=== PATIENT | male | born 1950 | race Caucasian/White ===

== ENCOUNTER 2018-04-04 20:36 | Outpatient (CLI) | payer SELFPAY | END 2018-04-04 20:37 | disposition EMS.NT | LOC: EMS 20:36 | PROVIDERS: ATTEND Surgery | DX: S61.051A Open bite of right thumb without damage to nail, initial encounter (principal); Y04.1XXA Assault by human bite, initial encounter ==

== ENCOUNTER 2022-07-18 13:49 | Emergency (ER) | payer MEDICARE ==
[2022-07-18 14:01] VITALS: BP 98/63
--- NOTE | 2022-07-18 14:15 | ED Physician Documentation ---
PD HPI LOWER EXT INJURY - Stated complaint Stated Complaint: LFT LEG INJ - Chief complaint Chief Complaint: Ext Problem - History obtained from History obtained from: Patient - History of Present Illness PD HPI LOW EXT INJURY LOCATION: Left, Knee (anteriorly) Type of injury: Laceration (he states he was using a knife poking at object and missed with the knife going down to lacerate into anterior patellar area. pain with ROM. He went to neighbor, who is a PA, and had the wound cleansed and stapled closed. Patient here today as hurting more and some swelling in anterior knee.) Review of Systems Neurologic: denies: Focal weakness, Numbness PD PAST MEDICAL HISTORY - Past Medical History Past Medical History: Yes Cardiovascular: Hypertension, High cholesterol Respiratory: None Neuro: None Endocrine/Autoimmune: None GI: None : None HEENT: None Psych: None Musculoskeletal: Chronic back pain, Other Derm: None - Past Surgical History Past Surgical History: Yes General: Other Ortho: Other - Present Medications Home Medications: Ambulatory Orders Medication Instructions Recorded Confirmed Atenolol [Tenormin] 100 mg PO DAILY 07/18/22 07/18/22 Atorvastatin Calcium 40 mg PO DAILY 07/18/22 07/18/22 Sertraline HCl 150 mg PO DAILY 07/18/22 07/18/22 buPROPion HCL [Bupropion Xl] 150 mg PO DAILY 07/18/22 07/18/22 methocarbamoL [Robaxin] 500 mg PO Q6H PRN #30 tablet 07/18/22 - Allergies Allergies/Adverse Reactions: Allergies Allergy/AdvReac Type Severity Reaction Status Date / Time No Known Drug Allergies Allergy Verified 07/18/22 14:01 - Social History Does the pt smoke?: No Smoking Status: Never smoker Does the pt drink ETOH?: Yes Does the pt have substance abuse?: No - Immunizations Immunizations are current?: Yes - POLST Patient has POLST: No PD ED PE NORMAL - Vitals Vital signs reviewed: Yes - General General: Alert and oriented X 3, No acute distress, Well developed/nourished - Derm Derm: Normal color, Warm and dry - Extremities Extremities: Other (left anterior knee over the patella area with stapled wound closed well. there is not any redness nor discharge. There is some fluid swelling lower infrapatellar area. no effusion. extension good but hurts. ) - Neuro Neuro: No motor deficit, No sensory deficit Results - Vitals Vitals: Vital Signs - 24 hr 07/18/22 13:52 Temperature 36.7 C Heart Rate 62 Respiratory 18 Rate Blood Pressure 98/63 O2 Saturation 95 Oxygen O2 Source Room air PD Medical Decision Making - ED course Complexity details: considered differential (he has some local swelling, presume soem dependent blood under skin, to the infrapatellar area. Presume stabbed into quads tendon that envelopes the patella. He would not have been able to get into joint at the direction the knife puncture went straight onto anterior patella. ), d/w patient Departure - Departure Disposition: 01 Home, Self Care Clinical Impression: Laceration of knee Qualifiers: Encounter type: initial encounter Laterality: right Qualified Code(s): S81.011A - Laceration without foreign body, right knee, initial encounter Low back pain Qualifiers: Chronicity: acute Back pain laterality: right Sciatica presence: with sciatica Sciatica laterality: sciatica of right side Qualified Code(s): M54.41 - Lumbago with sciatica, right side Condition: Stable Record reviewed to determine appropriate education?: Yes Instructions: ED Sciatica Prescriptions: methocarbamoL [Robaxin] 500 mg PO Q6H PRN #30 tablet PRN Reason: Spasms Comments: The duane on the knee look quite good. Given the location of the injury, it is reasonable that you have some injury into the tendon around the knee. It would be unlikely to hit anything significantly bad on the fronts there is most of the artery and nerves in such run on the backside. We can treat your pain in the knee as well as the low back pain with a combination of some ibuprofen 600 mg 3 times daily with food. Add methocarbamol/Robaxin muscle relaxant as needed for spasms and stiffness. To that add Tylenol every 4-6 hours if needed for pain. Recheck if signs of infection. Recheck of your back is not improving well over the next several days to a week. I sent your prescription to [facility] in [place]. Discharge Date/Time: 07/18/22 14:48
[2022-07-18] MEDS: IBUPROFEN 600 MG TABLET PO STA (14:45)
[2022-07-18] MEDS: ACETAMINOPHEN 325 MG TABLET PO STA (14:45)
[2022-07-18] MEDS: methocarbamoL 500 MG TABLET PO STA (14:45)
== END 2022-07-18 14:48 | disposition home or self-care (01) ==
LOC: ED 13:49
DX: S81.012A Laceration without foreign body, left knee, initial encounter (principal); W26.0XXA Contact with knife, initial encounter; M54.41 Lumbago with sciatica, right side; I10 Essential (primary) hypertension; E78.00 Pure hypercholesterolemia, unspecified; Z79.899 Other long term (current) drug therapy
CPT/HCPCS: 99282; 99283

== ENCOUNTER 2023-10-27 16:33 | Emergency (ER) | payer MEDICARE ==
--- NOTE | 2023-10-27 16:52 | ED Physician Documentation ---
PD HPI LOWER EXT INJURY - Stated complaint Stated Complaint: R KNEE DISCHARGE - Chief complaint Chief Complaint: Ext Problem - History obtained from History obtained from: Patient - Additional information Additional information: He is a little over 3 weeks out from a right total knee replacement done by Dr. Trotter in [place]. Today he developed a pinpoint of drainage in the anterior incision and was advised to come here for further evaluation and treatment. He does not feel ill. No fevers. PD PAST MEDICAL HISTORY - Past Medical History Past Medical History: Yes Cardiovascular: Hypertension, High cholesterol Respiratory: None Neuro: None Endocrine/Autoimmune: None GI: None : None HEENT: None Psych: None Musculoskeletal: Chronic back pain, Other Derm: None - Past Surgical History Past Surgical History: Yes General: Other Ortho: Knee replacement, Spine surgery, Other - Present Medications Home Medications: Ambulatory Orders Medication Instructions Recorded Confirmed Atenolol [Tenormin] 100 mg PO DAILY 07/18/22 07/18/22 Atorvastatin Calcium 40 mg PO DAILY 07/18/22 07/18/22 Sertraline HCl 150 mg PO DAILY 07/18/22 07/18/22 buPROPion HCL [Bupropion Xl] 150 mg PO DAILY 07/18/22 07/18/22 methocarbamoL [Robaxin] 500 mg PO Q6H PRN #30 tablet 07/18/22 cephALEXin [Keflex] 500 mg PO Q6H #28 cap 10/27/23 - Allergies Allergies/Adverse Reactions: Allergies Allergy/AdvReac Type Severity Reaction Status Date / Time No Known Drug Allergies Allergy Verified 07/18/22 14:01 - Social History Does the pt smoke?: No Smoking Status: Never smoker Does the pt drink ETOH?: Yes Does the pt have substance abuse?: No - Immunizations Immunizations are current?: Yes - POLST Patient has POLST: No PD ED PE NORMAL - Vitals Vital signs reviewed: Yes - General General: Alert and oriented X 3, No acute distress - Extremities Extremities: Other (For the most part his anterior knee incision is clean dry and intact but there is a pinpoint of drainage below the patella that was cultured. There is no cellulitis. He has full range of motion of the joint.) - Neuro Neuro: Alert and oriented X 3, Normal speech Results - Vitals Vitals: Vital Signs - 24 hr 10/27/23 10/27/23 16:37 17:57 Temperature 36.1 C L Heart Rate 54 L 88 Respiratory 16 18 Rate Blood Pressure 111/71 132/88 H O2 Saturation 96 100 Oxygen O2 Source Room air - Labs Labs: Microbiology 10/27/23 16:50 Wound Culture - Preliminary Knee - Right PD Medical Decision Making - ED course ED course: There is a tiny little area with some drainage. Clinically probably does not involve the knee joint thankfully and there is no significant cellulitis. Frankly, at this point it is questionable whether he needs antibiotics but given the recent knee replacement would of course err on the side of that and a culture is pending. He is advised to see his surgeon in the next 24 to 48 hours. He was administered 1 g of Ancef IM here and prepack of Keflex to go. Departure - Departure Disposition: 01 Home, Self Care Clinical Impression: Inflammation of suture line Condition: Good Record reviewed to determine appropriate education?: Yes Prescriptions: cephALEXin [Keflex] 500 mg PO Q6H #28 cap Comments: At this point it looks like the infection is mild and probably just in the suture line and probably not down to the joint. That said I do want you to follow closely with Dr. Trotter in the next 24 to 48 hours. We are performing a wound culture, the results should be done in 48-72 hours. If antibiotic change is necessary we will call you. Return if worse in the meantime, especially if you develop increased pain, fevers, cannot keep down the medication. Forms: PCP List Discharge Date/Time: 10/27/23 17:14
[2023-10-27] MEDS: CEPHALEXIN 250 MG Prepack 8 CAP BOTTLE PO STA (17:06)
[2023-10-27] MEDS: ceFAZolin 1 GM VIAL IM STA (17:06)
[2023-10-27 17:59] VITALS: BP 132/88; O2SAT 100
== END 2023-10-27 17:14 | disposition home or self-care (01) ==
LOC: ED 16:33
DX: T81.89XA Other complications of procedures, not elsewhere classified, initial encounter (principal); Y83.1 Surgical operation with implant of artificial internal device as the cause of abnormal reaction of the patient, or of later complication, without mention of misadventure at the time of the procedure; Z96.651 Presence of right artificial knee joint
CPT/HCPCS: 87070; 87181; 87205; 96372; 99283